=== PATIENT | female | born 1945 ===

== ENCOUNTER 2018-07-13 11:05 | Emergency (ER) | payer SELFPAY ==
--- NOTE | 2018-07-13 12:23 | UC ---
General HPI - HPI Summary HPI Summary: 72 y/o female with history of well controlled hypothyroidisim, visiting from [facility] with , will be in [place] 3 [place], did not bring bottle of Euthyriod with her, took last tablet today, requesting refill. Had side effects with generic she believes in past. - History of Current Complaint Chief Complaint: UCMedRefill Stated Complaint: MED REFILL Time Seen by Provider: 07/13/18 12:04 Hx Obtained From: Patient Onset/Duration: Other - no meds starting today Current Severity: None Pain Intensity: 0 - Allergy/Home Medications Allergies/Adverse Reactions: Allergies Allergy/AdvReac Type Severity Reaction Status Date / Time Penicillins Allergy Rash Verified 07/13/18 11:37 Home Medications: Home Medications Candesartan Cilexetil [Atacand] 1 tab PO DAILY 07/13/18 [History Confirmed 07/13] Cardiloc 2.5 mg PO DAILY 07/13/18 [History Confirmed 07/13/18] Minirin 5 ml PO DAILY 07/13/18 [History Confirmed 07/13/18] Rozovstatin 1 tab PO DAILY 07/13/18 [History Confirmed 07/13/18] predniSONE [Prednisone 5 MG TAB] 1 tab PO DAILY 07/13/18 [History Confirmed 06/20] PMH/Surg Hx/FS Hx/Imm Hx Previously Healthy: No - hypothyroidism Endocrine History: Hypothyroidism - Surgical History Surgical History: None - Social History Alcohol Use: None Substance Use Type: None Smoking Status (MU): Current Every Day Smoker Review of Systems All Other Systems Reviewed And Are Negative: Yes Is Patient Immunocompromised?: No Physical Exam Triage Information Reviewed: Yes Appearance: Well-Appearing, No Pain Distress, Well-Nourished Vital Signs: Initial Vital Signs Temp 96.8 F 07/13/18 11:32 Pulse 63 07/13/18 11:32 Resp 18 07/13/18 11:32 BP 111/69 07/13/18 11:32 Pulse Ox 99 07/13/18 11:32 Neck: Positive: Supple, Nontender, No Lymphadenopathy, Other: - thyroid palpable b/l, no nodules irrigularities, pain Course/Dx - Course Course Of Treatment: Medication refill - Differential Dx - Multi-Symptom Provider Diagnoses: hypothyroidism Discharge - Sign-Out/Discharge Documenting (check all that apply): Patient Departure All imaging exams completed and their final reports reviewed: No Studies - Discharge Plan Condition: Good Disposition: HOME Prescriptions: Euthyrox 150 tab PO DAILY 22 Days Patient Education Materials: Hypothyroidism (ED) Referrals: No Primary Care Phys,NOPCP [Primary Care Provider] - Additional Instructions: - Medication as directed - Billing Disposition and Condition Condition: GOOD Disposition: Home
== END 2018-07-13 12:28 | disposition home or self-care (01) ==
LOC: UCEAST 11:05
DX: Z76.0 Encounter for issue of repeat prescription (principal); E03.9 Hypothyroidism, unspecified; F17.200 Nicotine dependence, unspecified, uncomplicated; Z88.0 Allergy status to penicillin
CPT/HCPCS: 99202; G0463